=== PATIENT | female | born 1965 | race African-American/Black ===

== ENCOUNTER 2017-03-31 10:26 | Emergency (ER) | payer MEDICARE, OTHER ==
[~2017-03-31] VITALS: Ht 172.7 cm; Wt 78.0 kg
[2017-03-31] MEDS ORDERED: PANTOPRAZOLE SODIUM 40 MG/VIAL IV STA (10:37)
[2017-03-31] MEDS ORDERED: KETOROLAC 30MG/ML VIAL IV STA (10:37)
[2017-03-31] MEDS ORDERED: ONDANSETRON HCL 4MG/2ML VIAL IV STA (10:37)
[2017-03-31] MEDS ORDERED: SODIUM CHLORIDE 0.9% 1,000 ML IV ONE (10:37)
[2017-03-31 11:00] LABS: EOSINOPHILS % 0.1 % (0.0-5.0); HEMATOCRIT. 36.2 % (36.0-48.0); HEMOGLOBIN. 11.4 g/dL (12.0-16.0); LYMPHOCYTES % 17.8 % (20.0-50.0); MEAN CORPUSCULAR HEMOGLOBIN 21.1 pg (28.0-32.0); MEAN CORPUSCULAR VOLUME 66.9 fL (81.0-99.0); MEAN PLATELET VOLUME 8.2 fl (7.4-10.4); MONOCYTES % 5.3 % (2.0-8.0); NEUTROPHILS % 75.8 % (40.0-76.0); PLATELET 273 x1000/uL (130-400); RED BLOOD CELL COUNT 5.41 mill/uL (4.2-5.4); RED CELL DISTRIBUTION WIDTH 14.5 % (11.6-14.6)
[2017-03-31 11:06] LABS: CHLORIDE 107 mEq/L (98-107)
[2017-03-31 11:07] LABS: PROTHROMBIN TIME 10.8 sec
[2017-03-31 11:15] LABS: CARBON DIOXIDE 18 mEq/L (21-32)
[2017-03-31 11:26] LABS: PLATELET ESTIMATE NORMAL
[2017-03-31] MEDS ORDERED: LORAZEPAM 0.5MG TABLET PO ONE (12:00)
[2017-03-31 13:03] VITALS: BP 161/71
== END 2017-03-31 13:24 | disposition home or self-care (01) ==
LOC: ER 10:48
DX: R10.13 Epigastric pain (principal); R19.7 Diarrhea, unspecified; R11.10 Vomiting, unspecified; D64.9 Anemia, unspecified; E78.00 Pure hypercholesterolemia, unspecified; Z88.3 Allergy status to other anti-infective agents; Z88.2 Allergy status to sulfonamides
CPT/HCPCS: 36415; 74176; 80053; 83690; 85025; 85610; 93005; 96361; 96374; 96375; 99285; C9113; J1885; J2405; J7030

== ENCOUNTER 2019-04-30 16:07 | Emergency (ER) | payer MEDICARE, OTHER ==
[~2019-04-30] VITALS: Ht 157.5 cm; Wt 66.0 kg
[2019-04-30 16:24] VITALS: BP 111/51
[2019-04-30] MEDS: TETANUS, DIPHTHERIA, PERTUSSIS VAC/PF 0.5ML (>7YR OLD) IM ONE (17:00)
== END 2019-04-30 17:00 | disposition home or self-care (01) ==
LOC: ER 16:07
DX: T63.441A Toxic effect of venom of bees, accidental (unintentional), initial encounter (principal); L53.8 Other specified erythematous conditions; L98.8 Other specified disorders of the skin and subcutaneous tissue; J45.909 Unspecified asthma, uncomplicated; E78.00 Pure hypercholesterolemia, unspecified; D64.9 Anemia, unspecified; E03.9 Hypothyroidism, unspecified; D49.6 Neoplasm of unspecified behavior of brain; Z98.890 Other specified postprocedural states; Z90.89 Acquired absence of other organs; Z88.1 Allergy status to other antibiotic agents; Z88.2 Allergy status to sulfonamides; Z98.51 Tubal ligation status; Y92.89 Other specified places as the place of occurrence of the external cause
CPT/HCPCS: 90471; 90715; 99283